=== PATIENT | male | born 1975 | race Caucasian/White ===

== ENCOUNTER → 2020-11-19 | Outpatient (CLI) | payer OTHER ==
[~2020-11-19] MED LIST: AMIT10TA7 PO; LIDOCAINE 1% MDV 20ML VIAL As Ordered ONE
[2020-11-19 13:58] VITALS: BP 127/87
--- NOTE | 2020-11-19 14:41 | REP ---
INDICATION: RT THYROID NODULE. Right thyroid nodule found on MRI cervical spine. COMPARISON: Comparison sonography November 10, 2020.. Preprocedure sonography.. TECHNIQUE: High-resolution bilateral thyroid sonography. FINDINGS: Thyroid isthmus is 0.4 cm in greatest diameter. Right lobe dimensions by ultrasound of 5.4 x 2.7 x 2.3 cm. Left lobe measures 4.6 x 1.3 x 2.0 cm. In the right lobe somewhat inferiorly, there is a hypoechoic solid nodule measuring 2.2 x 1.8 x 1.8 cm. Adjacent to this there is a cystic area mixed nodule measuring 0.8 x 0.7 x 0.7 cm. IMPRESSION: 2.2 cm solid nodule again seen in the right thyroid lobe. Ultrasound-guided FNA will proceed. <Electronically signed by Jacek Escobar > 11/19/20 [id number]
--- NOTE | 2020-11-19 15:42 | REP ---
INDICATION: RT THYROID NODULE. COMPARISON: None. TECHNIQUE: The procedure was performed under the direct supervision of Dr. Barton. The patient has a history of a 2.2 cm nodule in the right thyroid seen on a previous ultrasound performed earlier today. The risks and benefits of the procedure were explained to the patient and informed consent was obtained. The right thyroid nodule was localized using ultrasound guidance. The skin was prepped and draped in a sterile fashion. 1% lidocaine was used as a local anesthetic. Using ultrasound guidance 4 fine-needle aspirations were obtained using 25 gauge needles. The patient tolerated the procedure well and there were no immediate complications. After the appropriate amount to monitor convalescence the patient was discharged from the department. FINDINGS: None IMPRESSION: Ultrasound-guided right thyroid biopsy. <Electronically signed by Anibal Seo > 11/19/20 1521 <Electronically signed by Steven Barton > 11/19/20 1533
== END ==
LOC: M IRPRO 12:19
PROVIDERS: ATTEND Physician Assistant
DX: D34 Benign neoplasm of thyroid gland (principal)

== ENCOUNTER 2020-11-30 11:38 | Emergency (ER) | payer OTHER ==
[~2020-11-30] VITALS: Ht 170.2 cm; Wt 89.0 kg
[~2020-11-30 11:38] MED LIST changes: -LIDOCAINE 1% MDV 20ML VIAL As Ordered ONE
[2020-11-30] MEDS ORDERED: GI COCKTAIL 50ML BTL(HYOSCYAMINE/MAALOX/LIDOCAINE VISCOUS)(1:3:1) PO ONE (12:40)
[2020-11-30 13:15] LABS: BASO % 0.4 % (0.0-1.0); EOS # 0.1 10^3/uL (0.0-0.5); EOS % 0.9 % (0.0-3.0); HEMATOCRIT 41.2 % (42.0-52.0); HEMOGLOBIN 13.9 g/dl (13.5-17.5); LYMPH # 0.9 10^3/uL (1.5-5.0); LYMPH % 14.9 % (24.0-44.0); MEAN CORPUSCULAR HGB CONC 33.7 g/dl (32.0-36.5); MONO # 0.4 10^3/uL (0.0-0.8); MONO % 7.2 % (2.0-8.0); NEUTROPHILS # 4.4 10^3/uL (1.5-8.5); NEUTROPHILS % 76.2 % (36.0-66.0); PLATELET COUNT, AUTOMATED 259 10^3/uL (150-450); RED BLOOD COUNT 4.48 10^6/uL (4.30-6.10); WHITE BLOOD COUNT 5.7 10^3/uL (4.0-10.0)
[2020-11-30] MEDS ORDERED: ISOVUE-370 76% 100ML VIAL As Ordered ONE (13:24)
[2020-11-30 14:00] LABS: ALBUMIN 4.4 GM/DL (3.2-5.2); BILIRUBIN,DIRECT 0.1 MG/DL (0.0-0.2); BILIRUBIN,TOTAL 0.3 MG/DL (0.2-1.0); TOTAL PROTEIN 7.2 GM/DL (6.4-8.2)
--- NOTE | 2020-11-30 14:03 | REP ---
INDICATION: severe epigastric pain. COMPARISON: None TECHNIQUE: Axial contrast-enhanced images from the lung bases to the pubic symphysis using 100 cc Isovue 370 intravenous contrast material. Coronal and sagittal reformations obtained. This CT examination was performed using the following dose reduction techniques: Automated exposure control, adjustment of mA and/or kv according to the patient's size, and the use of iterative reconstruction technique. FINDINGS: Lung bases are clear. Visualized heart and pericardium normal. Liver, spleen, pancreas, gallbladder, bilateral adrenal glands and kidneys are normal. The enteric system including stomach, small, and large bowel appears normal. No evidence for obstruction or acute inflammatory process. Normal terminal ileum and appendix are identified in the right lower quadrant. Pelvis demonstrates normal bladder and age-appropriate prostate/seminal vesicles. No ascites. No free air. No intraperitoneal or retroperitoneal adenopathy. Abdominal aorta and vasculature appear normal. Musculoskeletal structures are intact and without acute osseous abnormality. IMPRESSION: No acute abdominopelvic pathology appreciated. <Electronically signed by Neymar Sharp > 11/30/20 1400
[2020-11-30 14:28] VITALS: BP 136/79
== END 2020-11-30 14:39 | disposition home or self-care (01) ==
LOC: M ED 11:38 → EDBD 11:38 → M ED 14:39
DX: R10.84 Generalized abdominal pain (principal); R51.9 Headache, unspecified; F17.200 Nicotine dependence, unspecified, uncomplicated
CPT/HCPCS: 74177; 80047; 80076; 83690; 85025; 99284; Q9967

== ENCOUNTER → 2020-12-30 | Outpatient (CLI) | payer OTHER ==
[~2020-12-30] MED LIST changes: +LIDOCAINE 1% MDV 20ML VIAL As Ordered ONE
[2020-12-30 11:03] VITALS: BP 126/80
--- NOTE | 2020-12-30 17:18 | REP ---
INDICATION: RT THYROID LOBE NODULE. COMPARISON: None. TECHNIQUE: The procedure was performed under the direct supervision of Dr. Barton. Patient has a history of a 2.2 x 1.8 x 1.8 cm solid nodule in the inferior lobe of the right thyroid seen on a previous ultrasound dated 11/19/2020. This was biopsied on 11/19/2020. The patient is referred for re-biopsy. The risks and benefits of the procedure were explained to the patient and informed consent was obtained. The right thyroid nodule was localized using ultrasound guidance. The skin was prepped and draped in a sterile fashion. 3 mL of 1% lidocaine was used as a local anesthetic. Using ultrasound guidance 6 fine-needle aspirations were obtained using 25 gauge needles. The patient tolerated the procedure well and there were no immediate complications. After the appropriate amount to monitor convalescence the patient was discharged from the department. FINDINGS: None IMPRESSION: Ultrasound-guided right thyroid biopsy. <Electronically signed by Anibal Seo > 12/30/20 1509 <Electronically signed by Steven Barton > 12/30/20 [id number]
== END ==
LOC: M IRPRO 09:56
PROVIDERS: ATTEND Otolaryngology
DX: D44.0 Neoplasm of uncertain behavior of thyroid gland (principal)

== ENCOUNTER 2021-02-21 09:03 | Day surgery (SDC) | payer OTHER ==
[~2021-02-21] VITALS: Ht 170.2 cm; Wt 85.7 kg
[~2021-02-21 09:03] MED LIST changes: +IBUP200T45 PO; -LIDOCAINE 1% MDV 20ML VIAL As Ordered ONE; +LIDOCAINE 2% 100MG/5ML SDV (FOR ANES.) As Ordered ONE; +LR 1,000 ML IV ONE; +MIDAZOLAM INJ 2MG/2ML VIAL (J2250 PER 1MG) As Ordered ONE; +ONDANSETRON 4MG/2ML VIAL As Ordered ONE; +ROCURONIUM BROMIDE 50 MG/5 ML VIAL As Ordered ONE; +dexameTHASONE 4 MG/ML 1ML VIAL (J1100 PER 1MG) As Ordered ONE; +fentaNYL 250 MCG/5 ML INJECTION (J3010) As Ordered ONE; +propofoL 200 MG/20 ML VIAL As Ordered ONE
[2021-02-21] MEDS ORDERED: LACRILUBE (AKWA TEARS) OPHTH OINT 3.5 GM As Ordered ONE (09:14)
[2021-02-21] MEDS ORDERED: SUCCINYLCHOLINE 100 MG/5 ML SYRINGE (J0330) As Ordered ONE (10:06)
[2021-02-21] MEDS ORDERED: LIDOCAINE W/EPINEPHRINE 1% 20ML VIAL As Ordered ONE (10:12)
[2021-02-21] MEDS ORDERED: REMIFENTANIL 1MG 3ML VIAL As Ordered ONE (10:34)
[2021-02-21] MEDS ORDERED: propofoL 200 MG/20 ML VIAL As Ordered ONE (11:10)
[2021-02-21] MEDS ORDERED: HYDROmorphone HCL 2 MG/ML 1ML VIAL As Ordered ONE (11:13)
[2021-02-21] MEDS ORDERED: ACETAMINOPHEN 1000MG 100ML IV BTL (OFIRMEV) (J0131 PER 10MG) As Ordered ONE (11:13)
[2021-02-21] MEDS ORDERED: LR 1,000 ML IV SCH (13:20)
[2021-02-21] MEDS ORDERED: ONDANSETRON 4MG/2ML VIAL IV PRN ×2 (13:20→13:25)
[2021-02-21] MEDS ORDERED: fentaNYL 100 MCG/2 ML INJECTION (J3010) IV PRN (13:20)
[2021-02-21] MEDS ORDERED: MORPHINE 4 MG/ML 1ML VIAL/SYRINGE (J2270) IV PRN (13:25)
[2021-02-21] MEDS ORDERED: ANEXSIA, NORCO 7.5MG/325MG TABLET(HYDROCODONE/APAP) PO PRN (13:25)
--- NOTE | 2021-02-21 14:18 | ROOPDOC ---
[facility] Report Of Operation Report of Operation DATE OF PROCEDURE: 02/21/21 PREPROCEDURE DIAGNOSES: Right thyroid mass POSTPROCEDURE DIAGNOSES: Same PROCEDURE PERFORMED: Right hemithyroidectomy. SURGEON: MD Deny GI TECH: MD Gautam ANESTHESIA: General. ESTIMATED BLOOD LOSS: Approximately 25 mL. COMPLICATIONS: None. REMARKS: None FINDINGS: None SPECIMENS REMOVED: Right thyroid mass PROCEDURE NOTE: None. DESCRIPTION OF PROCEDURE: Curtis is a 45-year-old gentleman who was seen in the office and diagnosed with the above condition. Fine-needle aspiration was done which was nondiagnostic. Genetic testing suggested a 50% chance of malignancy. The risks and benefits of observation versus surgical resection were discussed and all questions were answered. Curtis indicated he would like to have surgical excision to remove the right thyroid lobe. He was admitted through same-day surgery program and taken to the operating room where is ministered a general anesthetic via intravenous injection he was then intubated endotracheally with a Nirvana endotracheal tube. Using the glide scope we ensured the tube was in the correct position. This was then secured. The neck was prepped and draped in usual sterile fashion. Using a surgical marking pen the proposed incision line was drawn. We injected with 1% lidocaine with epinephrine. Using a 15 blade the skin was incised sharply. The subcutaneous tissues were dissected with electrocautery through platysma. Allis forceps were used to grasp the superior limb we then elevated the subplatysmal plane to the level of the thyroid notch. The clamps were then placed on the inferior limb and we elevated to the sternal notch. Stay sutures were placed in 4 quadrants. DeBakeys were used to grab on either side of midline and electrocautery was used to separate the midline strap muscles from the thyroid notch to the sternal notch. We elevated the strap muscles off the right thyroid lobe this was retracted with a small Duron retractor. The gland was rotated medially and the attachments were carefully stimulated and then ligated. The inferior vessels were identified stimulated and ligated with the demonic scalpel. Medial vessels were identified stimulated and ligated. We then moved to the superior pole which was retracted laterally we dissected between the lobe and the trachea. The superior thyroid artery was identified clamped and ligated with the harmonic scalpel this was tied with a 2-0 silk suture. Additional superior vessels were ligated with the harmonic scalpel. The superior lobe was then rotated inferiorly and medially. A parathyroid was identified and preserved. We identified the recurrent nerve with the dissecting stimulator. We then released additional attachments medial to this. The midline of the thyroid was identified we elevated this off the trachea with a large Desire clamp. We then ligated this with the harmonic scalpel. Siddiqi's ligaments were released from the anterior tracheal wall. Placed the recurrent nerve to its insertion and elevated the remaining thyroid off the trachea and sent this to pathology. We then stimulated to ensure the nerve was functioning. We irrigated thoroughly. Peter was placed in the wound bed. A 7 CHERRY drain was placed through a separate stab incision along the left side of the neck. This was secured with a 3-0 nylon suture. The strap muscles were closed with interrupted 3-0 Vicryl suture. The skin was closed in 2 layers the first layer was a 3-0 Vicryl placed into the platysmal layer. The skin was closed with a 5- 0 Prolene placed in a subcuticular fashion. The wound was reinforced with S alison-Strips. Patient was allowed to recover from anesthetic and taken the postanesthesia care in stable condition. There were no complications during this procedure. Dheeraj Barclay MD Feb 21, 2021 14:18
[2021-02-21] MEDS: oxyCODONE 5MG TAB PO PRN ×2 (15:01→16:03)
[2021-02-21] MEDS: ceFAZolin SOD 1 GM in D5W MINI-BAG PLUS 50 ML IV SCH ×2 (15:01→22:23)
[2021-02-21 16:25] VITALS: BP 137/87
[2021-02-21] MEDS: LR 1,000 ML IV SCH (16:42)
[2021-02-21 16:55] VITALS: BP 133/86
[2021-02-21 17:55] VITALS: BP 144/91
[2021-02-21 18:55] VITALS: BP 121/75
[2021-02-21 19:55] VITALS: BP 130/76
[2021-02-21 21:30] VITALS: BP 129/74
[2021-02-22 02:00] VITALS: BP 119/75
[2021-02-22] MEDS: LR 1,000 ML IV SCH (03:31)
[2021-02-22] MEDS: ceFAZolin SOD 1 GM in D5W MINI-BAG PLUS 50 ML IV SCH (05:52)
[2021-02-22 06:00] VITALS: BP 125/81
== END 2021-02-22 09:16 | disposition home or self-care (01) ==
LOC: M SDC 09:03 → M MSPAV 16:27 → M SDC 02-22 09:16
PROVIDERS: ATTEND Otolaryngology
DX: D34 Benign neoplasm of thyroid gland (principal); E04.9 Nontoxic goiter, unspecified; G43.909 Migraine, unspecified, not intractable, without status migrainosus; Z79.899 Other long term (current) drug therapy
CPT/HCPCS: 60220; 88307; 96374; J0131; J0330; J0690; J1100; J1170; J2250; J2270; J2405; J3010

== ENCOUNTER → 2021-05-18 | Outpatient (CLI) | payer OTHER ==
[~2021-05-18] MED LIST changes: -LIDOCAINE 2% 100MG/5ML SDV (FOR ANES.) As Ordered ONE; -LR 1,000 ML IV ONE; -MIDAZOLAM INJ 2MG/2ML VIAL (J2250 PER 1MG) As Ordered ONE; -ONDANSETRON 4MG/2ML VIAL As Ordered ONE; -ROCURONIUM BROMIDE 50 MG/5 ML VIAL As Ordered ONE; -dexameTHASONE 4 MG/ML 1ML VIAL (J1100 PER 1MG) As Ordered ONE; -fentaNYL 250 MCG/5 ML INJECTION (J3010) As Ordered ONE; -propofoL 200 MG/20 ML VIAL As Ordered ONE
== END ==
LOC: M RAD 06:58
PROVIDERS: ATTEND Physician Assistant
DX: J31.2 Chronic pharyngitis (principal)

== ENCOUNTER → 2022-06-21 | Outpatient (CLI) | payer OTHER | LOC: M RAD 10:16 | PROVIDERS: ATTEND Otolaryngology | DX: E07.9 Disorder of thyroid, unspecified (principal); J31.2 Chronic pharyngitis; Z90.89 Acquired absence of other organs ==

== ENCOUNTER → 2022-07-28 | Outpatient (CLI) | payer OTHER ==
[~2022-07-28] MED LIST changes: +ISOVUE-370 76% 100ML VIAL As Ordered ONE
== END ==
LOC: M RAD 07:49
PROVIDERS: ATTEND Physician Assistant
DX: R22.1 Localized swelling, mass and lump, neck (principal)